=== PATIENT | female | born 1965 | race Two or more races ===

== ENCOUNTER 2017-05-22 22:53 | Emergency (ER) | payer MEDICAID ==
[~2017-05-22] VITALS: Ht 144.8 cm; Wt 61.2 kg
[~2017-05-22 22:53] MED LIST: BP pill; IBUPROFEN600 MG ORAL; TRAMADOL HCL50 MG ORAL; water pill
[2017-05-22] MEDS ORDERED: AMLODIPINE BESYL5 MG ORAL (23:03)
[2017-05-22 23:05] VITALS: BP 160/88
--- NOTE | 2017-05-23 00:21 | Emergency Room Report ---
History of Present Illness General Chief Complaint: Pain Source: Patient, Family Member Present Illness HPI [id number] with PMHx of HTN with intermittent shooting pain down left arm from left side of neck. Associated with numbnes, tingling but NO loss of strength Has also had it in bilateral hands occasionally Some times left hand/arm "goes white" when she has the pain No history in self or family of DVT, PE Denies fever/chills, headache, lower extremity weakness No past history of CVA Allergies: Coded Allergies: NO KNOWN ALLERGIES (Unverified Allergy, Unknown, 06/19/15) Patient History Past Medical History: HTN Past Surgical History: none Pertinent Family History: none Social History: Denies: smoking, alcohol use, drug use Last Menstrual Period: none Now: No Immunizations: UTD Reviewed Nursing Documentation: PMH: Agreed, PSxH: Agreed Nursing Documentation-PMH Hx Hypertension: Yes Review of Systems All Other Systems: negative except mentioned in HPI Physical Exam Vital Signs Date Time Temp Pulse Resp B/P (MAP) Pulse Ox O2 Delivery O2 Flow Rate FiO2 05/22/17 22:56 98.4 57 18 172/98 98 Sp02 EP Interpretation: reviewed, normal General Appearance: normal inspection, well appearing, no apparent distress, alert, GCS 15, non-toxic Head: normocephalic, atraumatic Eyes: bilateral eye PERRL, bilateral eye EOMI ENT: normal ENT inspection, hearing grossly normal, normal voice Neck: normal inspection, full range of motion, supple, no bony tend Respiratory: normal inspection, lungs clear, normal breath sounds, no respiratory distress, no retraction, no wheezing Cardiovascular #1: regular rate, rhythm, no edema Gastrointestinal: normal inspection, normal bowel sounds, non tender, soft, no guarding, no hernia Genitourinary: no CVA tenderness Musculoskeletal: normal inspection, back normal, normal range of motion, Tessy' s Sign negative Neurologic: normal inspection, alert, oriented x3, responsive, conference director III-XII nml as tested, motor strength/tone normal, speech normal Psychiatric: normal inspection, judgement/insight normal, mood/affect normal Skin: normal inspection, normal color, no rash Medical Decision Making Diagnostic Impression: Primary Impression: Neuropathy ER Course VSS. Afebrile No focal neuro weakness deficits Upper left extremity sono: no DVT per tech, ttp to deltoid on ultrasound exam - likely neuropathic Improved pain with gabapentin, motrin Advised ICE, HEAT, Rx Gabapentin, PMD followup DC home Last Vital Signs Date Time Temp Pulse Resp B/P (MAP) Pulse Ox O2 Delivery O2 Flow Rate FiO2 05/22/17 23:05 98.4 92 18 160/88 98 Status: improved Disposition: HOME, SELF-CARE Scripts Gabapentin* (GABAPENTIN*) 600 Mg Tablet 600 MG ORAL THREE TIMES A DAY for pain left arm for 7 Days, #30 TAB Prov: JASSON OLIVARES M.D. 05/23/17 Referrals: [facility],REFERRING (PCP) JASSON OLIVARES M.D. May 23, 2017 00:21
[2017-05-23] MEDS ORDERED: GABAPENTIN600 MG ORAL (00:26)
[2017-05-23 00:30] VITALS: BP_SYST 144; BP_SYST 160; BP_DIAS 77; BP_DIAS 88
[2017-05-23] MEDS ORDERED: Tylenol #3 tab (300mg/30mg) ORAL ONE (00:30)
--- NOTE | 2017-05-24 14:10 | Diagnostic Imaging Report ---
APPROVED REPORT CPT Code: 93960 Present Symptoms Upper Extremity Pain: Left LEFT UPPER EXTREMITY: Venous imaging reveals patency of the internal jugular, subclavian, axillary and brachial veins. The cephalic and basilic veins are also patent. Doppler indicates normal spontaneous flow within these venous segments.
--- NOTE | 2017-05-24 14:10 | Diagnostic Imaging Report ---
APPROVED REPORT CPT Code: 37224 Present Symptoms Upper Extremity Pain: Left LEFT UPPER EXTREMITY: Venous imaging reveals patency of the internal jugular, subclavian, axillary and brachial veins. The cephalic and basilic veins are also patent. Doppler indicates normal spontaneous flow within these venous segments.
--- NOTE | 2017-05-24 14:10 | Diagnostic Imaging Report ---
APPROVED REPORT CPT Code: 21201 Present Symptoms Upper Extremity Pain: Left LEFT UPPER EXTREMITY: Venous imaging reveals patency of the internal jugular, subclavian, axillary and brachial veins. The cephalic and basilic veins are also patent. Doppler indicates normal spontaneous flow within these venous segments.
== END 2017-05-23 00:30 | disposition home or self-care (01) ==
LOC: EMR 23:16
DX: G62.9 Polyneuropathy, unspecified (principal); M79.602 Pain in left arm; I10 Essential (primary) hypertension
CPT/HCPCS: 93971; 99284